=== PATIENT | female | born 1980 | race Caucasian/White ===

== ENCOUNTER 2021-10-20 16:37 | Emergency (ER) | payer BC ==
[2021-10-20 17:01] LABS: HEMOGLOBIN 13.2 gm/dl (12.3-15.3); RED BLOOD COUNT 4.39 M/UL (4.00-5.10); WHITE BLOOD COUNT 6.2 K/UL (4.5-11.0)
[2021-10-20 17:32] LABS: BUN/CREATININE RATIO 10 (0-10)
== END 2021-10-20 20:05 | disposition home or self-care (01) ==
LOC: ER1 16:37
PROVIDERS: Preventive Medicine Occupational Medicine; Student in an Organized Health Care Education/Training Program
DX: F41.9 Anxiety disorder, unspecified (principal); Z20.822 Contact with and (suspected) exposure to COVID-19
CPT/HCPCS: 0240U; 71045; 80053; 80307; 81001; 82140; 82550; 82553; 83605; 83690; 83880; 84484; 85025; 85610; 85652; 86140; 86403; 87086; 93005; 99284